=== PATIENT | male | born 1990 | race Caucasian/White ===

== ENCOUNTER 2016-03-24 01:03 | Emergency (ER) | payer SELFPAY ==
[2016-03-24 04:42] VITALS: BP 139/81
[2016-03-24] MEDS ORDERED: HYDROCODONE/ACETAMINOPHEN 5-325 MG 6 TAB/DSPK PO PRN (05:15)
[2016-03-24] MEDS ORDERED: CLINDAMYCIN HCL 150 MG CAPSULE PO ONE (05:17)
--- NOTE | 2016-03-24 05:17 | ER Document Report ---
ED General - General Chief Complaint: Toothache Stated Complaint: MOUTH PAIN Notes: Patient is a 26-year-old male presents with complaints of toothache. She's been seen her twice in February for the same toothache. He is waiting to get into the dentist this month. He says that tonight he developed a bump in his gum next the tooth that is bothering him. Denies any fevers. No difficulty breathing. No facial swelling. No other complaints at this time. He was on clindamycin 2 weeks ago. TRAVEL OUTSIDE OF THE [place] IN LAST 30 DAYS: No - Related Data Allergies/Adverse Reactions: amoxicillin [Amoxicillin] Allergy (Verified 03/13/16 18:28) Penicillins Allergy (Verified 03/13/16 18:28) Past Medical History - Social History Smoking Status: Current Every Day Smoker Cigarette use (# per day): Yes - 1ppd Frequency of alcohol use: Occasional Drug Abuse: None Family History: Reviewed & Not Pertinent Traumatic Medical History: Reports: Hx Fractures - multiple Infectious Medical History: Denies: Hx MRSA Surgical Hx: Negative - Immunizations Hx Diphtheria, Pertussis, Tetanus Vaccination: Yes Review of Systems - Review of Systems Notes: My Normal Review Basic REVIEW OF SYSTEMS: CONSTITUTIONAL : Denies fever, chills, or sweats. Denies recent illness. EENT: Dental pain CARDIOVASCULAR: Denies chest pain. RESPIRATORY: Denies cough, cold, or chest congestion. Denies shortness of breath, difficulty breathing, or wheezing. GASTROINTESTINAL: Denies abdominal pain. Denies nausea, vomiting, or diarrhea. Denies constipation. Last BM: MUSCULOSKELETAL: Denies neck or back pain or joint pain or swelling. SKIN: Denies rash or skin lesions. NEUROLOGICAL: Denies altered mental status or loss of consciousness. Denies headache. Denies weakness or paralysis or loss of use of either side. Denies problems with gait or speech. Denies sensory or motor loss. ALL OTHER SYSTEMS REVIEWED AND NEGATIVE. Physical Exam - Vital signs Vitals: Temp Pulse Resp BP Pulse Ox 98.2 F 99 16 139/81 H 98 03/24/16 04:36 03/24/16 04:36 03/24/16 04:36 03/24/16 04:36 03/24/16 04:36 - Notes Notes: General Appearance: Well nourished, alert, cooperative, no acute distress, moderate obvious discomfort. Vitals: reviewed, See vital signs table. Head: no swelling or tenderness to the head Eyes: PERRL, EOMI, Conjuctiva clear Mouth: Patient has severe dental caries of her multiple teeth. She has several fractured teeth. He does have a small area of bruising of the gum near his left lower premolar. There is almost swelling. I do not suspect she labs at this time. He has no facial swelling associated with it. Throat: No tonsillar inflammation, No airway obstruction, No lymphadenopathy Neck: Supple, no neck tenderness, Skin: warm, dry, appropriate color, no rash Neuro: speech clear, oriented x 3, normal affect, responds appropriately to questions. Course - Vital Signs Vital signs: Temp Pulse Resp BP Pulse Ox 98.2 F 99 16 139/81 H 98 03/24/16 04:36 03/24/16 04:36 03/24/16 04:36 03/24/16 04:36 03/24/16 04:36 - Transfer of Care Notes: 03/24/16 07:29 Patient is well-appearing. I feel he is safe to be discharged home. His no facial swelling and no swelling of the neck. A denies any signs of impending airway compromise. Informed him that based on location of his dental caries that he is a risk of developing facial swelling that goes across his neck in the future. Informed her that this happens must return to ER immediately. I encouraged him to quickly follow-up with a dentist to have his teeth removed or taking care of to help relieve his symptoms. Patient agrees with plan will be discharged home. Patient will be discharged home with prescription of clindamycin and some pain medication. Dictation of this chart was performed using voice recognition software; therefore, there may be some unintended grammatical errors. Discharge - Discharge Clinical Impression: Toothache, Dental infection Condition: Good Disposition: HOME, SELF-CARE Instructions: Oral Narcotic Medication ([facility]), Toothache ([facility]) Additional Instructions: Please return to the ER immediately if you develop facial swelling or swelling below your jaw, difficulty breathing, difficulty swallowing, or any fevers. Prescriptions: Clindamycin HCl 300 mg PO ASDIR #56 capsule Hydrocodone/Acetaminophen [[place] 5-325 mg Tablet] 1 tab PO Q4 PRN #16 tablet PRN Reason: For Breakthrough Pain
== END 2016-03-24 05:20 | disposition home or self-care (01) ==
LOC: ER 01:03
DX: K08.9 Disorder of teeth and supporting structures, unspecified (principal); K04.7 Periapical abscess without sinus; F17.210 Nicotine dependence, cigarettes, uncomplicated; Z88.0 Allergy status to penicillin
CPT/HCPCS: 99282

== ENCOUNTER 2016-03-29 17:58 | Emergency (ER) | payer SELFPAY ==
--- NOTE | 2016-03-29 18:05 | ER Document Report ---
ED Medical Screen (RME) - General Stated Complaint: JAW PAIN Mode of Arrival: Ambulatory Information source: Patient Notes: pt had oral surgery yesterday. Pt c/o pain to left lower jaw pain with bleeding. TRAVEL OUTSIDE OF THE [place] IN LAST 30 DAYS: No - Related Data Allergies/Adverse Reactions: amoxicillin [Amoxicillin] Allergy (Verified 03/29/16 18:01) Penicillins Allergy (Verified 03/29/16 18:01) Past Medical History Traumatic Medical History: Reports: Hx Fractures - multiple Infectious Medical History: Denies: Hx MRSA - Immunizations Hx Diphtheria, Pertussis, Tetanus Vaccination: Yes Physical Exam - HEENT Teeth diagram: 1 - gauze dressing, no visible blood, no potential airway compromise
[2016-03-29] MEDS ORDERED: HYDROCODONE/ACETAMINOPHEN 5-325 MG 6 TAB/DSPK PO PRN (18:33)
--- NOTE | 2016-03-29 18:35 | ER Document Report ---
ED Oral Problem - General Chief Complaint: Mouth Problem Stated Complaint: JAW PAIN Mode of Arrival: Ambulatory TRAVEL OUTSIDE OF THE [place] IN LAST 30 DAYS: No - HPI Patient complains to provider of: Jaw pain Onset: Yesterday Quality of pain: Sharp, Throbbing Severity: Moderate Pain Level: 4 Associated symptoms: Jaw pain Worsened by: Nothing Relieved by: Nothing Similar symptoms previously: Yes Recently seen / treated by doctor/dentist: Yes - Related Data Allergies/Adverse Reactions: amoxicillin [Amoxicillin] Allergy (Verified 03/29/16 18:01) Penicillins Allergy (Verified 03/29/16 18:01) Past Medical History - General Information source: Patient - Social History Smoking Status: Current Every Day Smoker Chew tobacco use (# tins/day): No Frequency of alcohol use: Occasional Drug Abuse: None Family History: Reviewed & Not Pertinent Patient has suicidal ideation: No Patient has homicidal ideation: No Traumatic Medical History: Reports: Hx Fractures - multiple Infectious Medical History: Denies: Hx MRSA - Immunizations Hx Diphtheria, Pertussis, Tetanus Vaccination: Yes Physical Exam - Vital signs Vitals: Temp Pulse Resp BP Pulse Ox 97.7 F 133 H 18 137/99 H 99 03/29/16 18:03 03/29/16 18:03 03/29/16 18:03 03/29/16 18:03 03/29/16 18:03 Interpretation: Normal Notes: Pulse is not 133 but 96 - General General appearance: Appears well, Alert - HEENT Head: Normocephalic, Atraumatic Eyes: Normal Pupils: PERRL Ears: Normal External canal: Normal Tympanic membrane: Normal Sinus: Normal Nasal: Normal Mouth/Lips: Other - Multiple cavities broken off teeth and Teeth diagram: 1 - 3 teeth removed yesterday, multiple teeth down to the gumline with multiple cavities noted and gingivitis. Very minimal bleeding when touched. Pharynx: Normal Neck: Normal - Respiratory Respiratory status: No respiratory distress Chest status: Nontender Breath sounds: Normal Chest palpation: Normal - Cardiovascular Rhythm: Regular Heart sounds: Normal auscultation Murmur: No - Abdominal Inspection: Normal Distension: No distension Bowel sounds: Normal Tenderness: Nontender Organomegaly: No organomegaly - Back Back: Normal, Nontender - Extremities General upper extremity: Normal inspection, Nontender, Normal color, Normal ROM , Normal temperature General lower extremity: Normal inspection, Nontender, Normal color, Normal ROM , Normal temperature, Normal weight bearing. No: Sirena's sign - Neurological Neuro grossly intact: Yes Cognition: Normal Orientation: AAOx4 [place] Coma Scale Eye Opening: Spontaneous Linda Coma Scale Verbal: Oriented [place] Coma Scale Motor: Obeys Commands Linda Coma Scale Total: 15 Speech: Normal Motor strength normal: LUE, RUE, LLE, RLE Sensory: Normal - Psychological Associated symptoms: Normal affect, Normal mood - Skin Skin Temperature: Warm Skin Moisture: Dry Skin Color: Normal Course - Re-evaluation Re-evalutation: 03/29/16 18:45 Patient treated with a dispense pack of hydrocodone and discharged home with a follow-up with his oral surgeon. - Vital Signs Vital signs: Temp Pulse Resp BP Pulse Ox 97.7 F 133 H 18 137/99 H 99 03/29/16 18:03 03/29/16 18:03 03/29/16 18:03 03/29/16 18:03 03/29/16 18:03 Discharge - Discharge Clinical Impression: jaw pain post dental surgery Condition: Stable Disposition: HOME, SELF-CARE Instructions: Family Physicians / Practices Additional Instructions: You were seen today for pain in the left lower jaw post dental surgery yesterday with minimal bleeding. This is normal after removal of 3 teeth. The bleeding is normal for post surgery. Please applied a gauze to the area with pressure. No use of a straw or smoking cigarettes as instructed by your dental surgeon. Oral Narcotic Medication You have been given a prescription for pain control. This medication is a narcotic. It's best taken with food, as nausea can result if taken on an empty stomach. Don't operate machinery or drive within six hours of taking this medication. Do not combine this medicine with alcohol, or with any medication which can cause sedation (such as cold tablets or sleeping pills) unless you get permission from the physician. Narcotics tend to cause constipation. If possible, drink plenty of fluids and eat a diet high in fiber and fruits. Ice Packs Apply ice packs frequently against the painful area. Many different schedules are recommended, such as "20 minutes on, 20 minutes off" or "one hour ice, two hours rest." If you need to work, you may need to go longer between ice treatments. You should plan to have the area ice packed AT LEAST one fourth of the time. The ice should be applied over the wrap, tape, or splint, or over a layer of cloth -- not directly against the skin. Some ice bags have a built-in cloth and can be put directly on the skin. FOLLOW-UP CARE: If you have been referred to a physician for follow-up care, call the physician s office for an appointment as you were instructed or within the next two days. If you experience worsening or a significant change in your symptoms, notify the physician immediately or return to the Emergency Department at any time for re-evaluation. Forms: Elevated Blood Pressure, Return to Work
[2016-03-29 18:53] VITALS: BP 125/79
== END 2016-03-29 18:50 | disposition home or self-care (01) ==
LOC: ER 17:58
DX: R68.84 Jaw pain (principal); Z98.818 Other dental procedure status; F17.200 Nicotine dependence, unspecified, uncomplicated; Z88.0 Allergy status to penicillin
CPT/HCPCS: 99283

== ENCOUNTER 2016-06-02 17:36 | Emergency (ER) | payer SELFPAY ==
--- NOTE | 2016-06-02 17:53 | ER Document Report ---
ED Medical Screen (RME) - General Stated Complaint: HAND PAIN Mode of Arrival: Ambulatory Information source: Patient Notes: Patient presents to the emergency department with complaints of left dorsal hand pain. He reports he dropped drywall on a yesterday. Denies past medical history of injury to the hand. Brisk cap refill, , no obvious deformity, no swelling no ecchymosis. I have greeted and performed a rapid initial assessment of this patient. A comprehensive ED assessment and evaluation of the patient, analysis of test results and completion of the medical decision making process will be conducted by additional ED providers. TRAVEL OUTSIDE OF THE [place] IN LAST 30 DAYS: No - Related Data Allergies/Adverse Reactions: amoxicillin [Amoxicillin] Allergy (Verified 03/29/16 18:01) Penicillins Allergy (Verified 03/29/16 18:01) Past Medical History Traumatic Medical History: Reports: Hx Fractures - multiple Infectious Medical History: Denies: Hx MRSA - Immunizations Hx Diphtheria, Pertussis, Tetanus Vaccination: Yes
[2016-06-02] MEDS ORDERED: IBUPROFEN 600 MG TABLET PO ONE (19:58)
[2016-06-02 20:42] VITALS: BP 128/80
--- NOTE | 2016-06-02 21:33 | ER Document Report ---
ED General - General Chief Complaint: Hand Pain Stated Complaint: HAND PAIN Mode of Arrival: Ambulatory Notes: Patient is a 26-year-old male without past medical history who presents with pain over his left fourth metacarpal after he dropped a piece of drywall onto the hand. States that since that time he's had a small "lump" to the affected area. Also notes a constant, mild, throbbing pain. States moving the hand worsens the pain. He has not tried anything to improve the pain. No history of similar injury in the past. He has not seen his primary care physician regarding today's concerns. Denies any additional injuries. TRAVEL OUTSIDE OF THE [place] IN LAST 30 DAYS: No - Related Data Allergies/Adverse Reactions: amoxicillin [Amoxicillin] Allergy (Verified 06/02/16 17:52) Penicillins Allergy (Verified 06/02/16 17:52) Past Medical History - General Information source: Patient - Social History Smoking Status: Current Every Day Smoker Chew tobacco use (# tins/day): Yes Frequency of alcohol use: None Drug Abuse: None Lives with: Spouse/Significant other Family History: Reviewed & Not Pertinent Patient has suicidal ideation: No Patient has homicidal ideation: No Renal/ Medical History: Denies: Hx Peritoneal Dialysis Traumatic Medical History: Reports: Hx Fractures - multiple Infectious Medical History: Denies: Hx MRSA - Immunizations Hx Diphtheria, Pertussis, Tetanus Vaccination: Yes Review of Systems - Review of Systems Notes: Constitutional: Negative for fever. HENT: Negative for sore throat. Eyes: Negative for visual changes. Cardiovascular: Negative for chest pain. Respiratory: Negative for shortness of breath. Gastrointestinal: Negative for abdominal pain, vomiting or diarrhea. Genitourinary: Negative for dysuria. Musculoskeletal: Positive for left hand pain Skin: Negative for rash. Neurological: Negative for headaches, weakness or numbness. 10 point ROS negative except as marked above and in HPI. Physical Exam - Vital signs Vitals: Temp Pulse Resp BP Pulse Ox 98.8 F 91 14 137/71 H 98 06/02/16 17:51 06/02/16 17:51 06/02/16 17:51 06/02/16 17:51 06/02/16 17:51 Interpretation: Normal Notes: PHYSICAL EXAMINATION: GENERAL: Well-appearing, well-nourished and in no acute distress. HEAD: Atraumatic, normocephalic. EYES: sclera anicteric, conjunctiva are normal. ENT: Moist mucous membranes. NECK: Normal range of motion LUNGS: Normal work of breathing HEART: 2+ radial pulses bilaterally EXTREMITIES: no pitting or edema. No cyanosis. Mild ecchymosis over the left fourth metacarpal with full flexion and extension throughout. NEUROLOGICAL: No focal neurological deficits. Moves all extremities spontaneously and on command. AIN, DELFINA, IO intact bilaterally. RMU sensation intact bilaterally PSYCH: Normal mood, normal affect. SKIN: Warm, Dry, normal turgor, no rashes or lesions noted. Course - Re-evaluation Re-evalutation: 06/02/16 19:57 No evidence of a septic joint, gout flare, dislocation, or fracture on exam and imaging. Clinical history and exams most consistent with soft tissue injury in the setting of direct blunt trauma. Vitals wnl. At this time, I do not see an indication for labs or further imaging. At this time will discharge with return precautions and follow-up recommendations. Verbal discharge instructions given a the bedside and opportunity for questions given. Medication warnings reviewed. Patient is in agreement with this plan and has verbalized understanding of return precautions and the need for primary care follow-up in the next 24-72 hours. - Vital Signs Vital signs: Temp Pulse Resp BP Pulse Ox 97.7 F 85 18 128/80 H 99 06/02/16 20:18 06/02/16 20:18 06/02/16 20:18 06/02/16 20:18 06/02/16 20:18 Discharge - Discharge Clinical Impression: Injury of left hand Qualifiers: Encounter type: initial encounter Qualified Code(s): S69.92XA - Unspecified injury of left wrist, hand and finger(s), initial encounter Condition: Good Disposition: HOME, SELF-CARE Additional Instructions: Your x-ray does not show any acute fracture today. You likely have a soft tissue injury. You should continue to take anti-inflammatories such as ibuprofen 600 mg every 6 hours. Continue to apply ice to the area is much your able. Please follow-up with your primary care physician if you do not have improving your symptoms in the next 1-2 weeks. Please return immediately if you develop weakness, numbness, spreading redness from the area, or any other symptoms that are concerning to you.
== END 2016-06-02 20:18 | disposition home or self-care (01) ==
LOC: ER 17:36
DX: S69.92XA Unspecified injury of left wrist, hand and finger(s), initial encounter (principal); M79.642 Pain in left hand; F17.220 Nicotine dependence, chewing tobacco, uncomplicated; W20.8XXA Other cause of strike by thrown, projected or falling object, initial encounter; Z88.0 Allergy status to penicillin
CPT/HCPCS: 99283

== ENCOUNTER 2016-10-31 00:58 | Emergency (ER) | payer SELFPAY ==
[2016-10-31 01:35] VITALS: BP 124/80
[2016-10-31] MEDS ORDERED: BENZONATATE 100 MG CAPSULE PO ONE (01:37)
[2016-10-31] MEDS ORDERED: CLINDAMYCIN HCL 150 MG CAPSULE PO ONE (01:37)
[2016-10-31] MEDS ORDERED: IBUPROFEN 600 MG TABLET PO ONE (01:37)
--- NOTE | 2016-10-31 02:19 | ER Document Report ---
ED General - General Chief Complaint: Toothache Stated Complaint: TOOTHACHE Time Seen by Provider: 10/31/16 01:35 Notes: Patient is a 26-year-old male who presents with left lower jaw pain which she states is related to a recent dental injury that he sustained today when he cracked a tooth while eating. Patient describes it as a severe, constant, stabbing pain. Talking or moving the jaw or worsens the pain. He has tried ibuprofen with moderate improvement of the pain. Patient has been seen in the emergency department on a multitude of prior occasions for dental related issues. He states he is currently working with a dentist but came to the emergency department tonight as the dental office is closed at this time. Denies any difficulty breathing or swallowing. TRAVEL OUTSIDE OF THE [place] IN LAST 30 DAYS: No - Related Data Allergies/Adverse Reactions: amoxicillin [Amoxicillin] Allergy (Verified 06/02/16 17:52) Penicillins Allergy (Verified 06/02/16 17:52) Past Medical History - General Information source: Patient - Social History Smoking Status: Current Every Day Smoker Frequency of alcohol use: None Drug Abuse: None Lives with: Spouse/Significant other Family History: Reviewed & Not Pertinent Renal/ Medical History: Denies: Hx Peritoneal Dialysis Traumatic Medical History: Reports: Hx Fractures - multiple Infectious Medical History: Denies: Hx MRSA - Immunizations Hx Diphtheria, Pertussis, Tetanus Vaccination: Yes Review of Systems - Review of Systems Notes: Constitutional: Negative for fever. HENT: Positive for dental pain Eyes: Negative for visual changes. Cardiovascular: Negative for chest pain. Respiratory: Negative for shortness of breath. Gastrointestinal: Negative for abdominal pain, vomiting or diarrhea. Genitourinary: Negative for dysuria. Musculoskeletal: Negative for back pain. Skin: Negative for rash. Neurological: Negative for headaches, weakness or numbness. 10 point ROS negative except as marked above and in HPI. Physical Exam - Vital signs Vitals: Temp Pulse Resp BP Pulse Ox 97.7 F 86 15 124/80 97 10/31/16 01:30 10/31/16 01:30 10/31/16 01:30 10/31/16 01:30 10/31/16 01:30 Interpretation: Normal Notes: PHYSICAL EXAMINATION: GENERAL: Well-appearing, well-nourished and in no acute distress. HEAD: Atraumatic, normocephalic. EYES: sclera anicteric, conjunctiva are normal. ENT: Moist mucous membranes. Poor dentition throughout. No evidence of an apical abscess, facial swelling or oropharyngeal edema NECK: Normal range of motion LUNGS: Normal work of breathing HEART: 2+ radial pulses bilaterally EXTREMITIES: no pitting or edema. No cyanosis. NEUROLOGICAL: No focal neurological deficits. Moves all extremities spontaneously and on command. PSYCH: Normal mood, normal affect. SKIN: Warm, Dry, normal turgor, no rashes or lesions noted. Course - Re-evaluation Re-evalutation: 10/31/16 02:17 Presentation is most consistent with likely an infected tooth. Airway is patent. Vitals within normal limits. Patient is able swallow without any difficulty. There is no significant facial swelling. Patient will be started on antibiotics and a limited number of pain medications. I've instructed to follow-up with dentistry as earliest ability for definitive management. Return precautions and follow-up recommendations have been discussed at length. - Vital Signs Vital signs: Temp Pulse Resp BP Pulse Ox 97.7 F 86 15 124/80 97 10/31/16 01:30 10/31/16 01:30 10/31/16 01:30 10/31/16 01:30 10/31/16 01:30 Discharge - Discharge Clinical Impression: Pain, dental Condition: Good Disposition: HOME, SELF-CARE Additional Instructions: You have been seen for dental pain. It is very important that you follow-up with a dentist for definitive care. Please return if you develop fever greater than 101, swelling in your face, vomiting, difficulty breathing or swallowing, or any other symptoms that are concerning to you. For pain you should take ibuprofen 600 mg every 6 hours as needed. Prescriptions: Clindamycin HCl 300 mg PO TID #30 capsule
== END 2016-10-31 02:26 | disposition home or self-care (01) ==
LOC: ER 00:58
DX: K08.89 Other specified disorders of teeth and supporting structures (principal); R68.84 Jaw pain; F17.200 Nicotine dependence, unspecified, uncomplicated
CPT/HCPCS: 99282

== ENCOUNTER 2016-12-29 16:51 | Emergency (ER) | payer SELFPAY ==
[2016-12-29 17:42] VITALS: BP 125/82
[2016-12-29] MEDS ORDERED: OXYCODONE-ACETAMINOPHEN 5-325 MG TABLET PO ONE (19:07)
[2016-12-29] MEDS ORDERED: CEPHALEXIN 500 MG CAPSULE PO ONE (19:07)
--- NOTE | 2016-12-29 19:07 | ER Document Report ---
HPI - HPI Patient complains to provider of: Left finger injury Pain Level: 4 Context: Patient is a 26-year-old male presents emergency department complaining of left finger hurts and feels like it is pulsing but otherwise denies any sensory dysfunction. Full range of motion. Otherwise healthy male index finger injury. Patient states that he hit with a hammer today. There is a superficial laceration. Tetanus is up-to-date. States it is - DERM Skin Color: Normal Past Medical History - Social History Smoking Status: Current Every Day Smoker Family History: Reviewed & Not Pertinent Patient has suicidal ideation: No Patient has homicidal ideation: No Renal/ Medical History: Denies: Hx Peritoneal Dialysis Traumatic Medical History: Reports: Hx Fractures - multiple Infectious Medical History: Denies: Hx MRSA - Immunizations Hx Diphtheria, Pertussis, Tetanus Vaccination: Yes Vertical Provider Document - CONSTITUTIONAL Agree With Documented VS: Yes Exam Limitations: No Limitations General Appearance: WD/WN, No Apparent Distress - INFECTION CONTROL TRAVEL OUTSIDE OF THE [place] IN LAST 30 DAYS: No - RESPIRATORY O2 Sat by Pulse Oximetry: 98 - CARDIOVASCULAR Pulses: Normal: Radial - Capillary refill less than 2 seconds in all upper extremity digits - MUSCULOSKELETAL/EXTREMETIES Musculoskeletal/Extremeties: MAEW, FROM, Tender - Distal phalanx of the left index finger, No Edema. negative: Eccymosis Notes: No evidence of subungual hematoma, nail injury, tendon deficit - NEURO Level of Consciousness: Awake, Alert, Appropriate Motor/Sensory: No Motor Deficit, No Sensory Deficit - DERM Integumentary: Warm, Dry, No Rash, Laceration - 2 cm superficial laceration without involvement in the dermis or wound edges. Course - Re-evaluation Re-evalutation: 12/29/16 19:07 Patient is a 26-year-old male is hemodynamically stable, no acute distress afebrile. No evidence of a septic joint, gout flare, dislocation, or fracture on exam and imaging. Vitals wnl. At this time, I do not see an indication for labs or further imaging. Laceration was irrigated with Betadine, dressed with Steri-Strips and dry sterile dressing and splint. Will discharge with conservative measures, return precautions, and follow-up recommendations. - Vital Signs Vital signs: Temp Pulse Resp BP Pulse Ox 101 H 16 125/82 98 12/29/16 08:39 12/29/16 08:39 12/29/16 08:39 12/29/16 08:39 - Diagnostic Test Radiology reviewed: Image reviewed, Reports reviewed Discharge - Discharge Clinical Impression: Finger injury Qualifiers: Encounter type: initial encounter Laterality: left Qualified Code(s): S69.92XA - Unspecified injury of left wrist, hand and finger(s), initial encounter Condition: Good Disposition: HOME, SELF-CARE Instructions: Contusion ([facility]), Soap Cleansing ([facility]), Sprained Finger ([facility]) Additional Instructions: Please beware of signs of worsening swelling, redness or drainage Keep the site clean, dry and covered with the splint Prescriptions: Cephalexin Monohydrate [Keflex 500 mg Capsule] 500 mg PO Q6H 5 Days capsule
--- NOTE | 2016-12-29 19:27 | RADIOLOGY REPORT (SQ) ---
EXAM DESCRIPTION: FINGER LEFT COMPLETED DATE/TIME: 12/29/2016 7:20 pm REASON FOR STUDY: index hit with hammer COMPARISON: None. NUMBER OF VIEWS: Three views. TECHNIQUE: AP, lateral, and oblique images acquired of the left second finger. LIMITATIONS: None. FINDINGS: MINERALIZATION: Normal. BONES: No acute fracture or dislocation. No worrisome bone lesions. SOFT TISSUES: No soft tissue swelling. No foreign body. OTHER: No other significant finding. IMPRESSION: NO RADIOGRAPHIC EVIDENCE OF ACUTE INJURY. COMMENT: SITE OF TRAUMA/COMPLAINT MARKED/STAMP COMPLETED: NO. TECHNICAL DOCUMENTATION: JOB ID: [id number]- All Rights Reserved
[2016-12-29] MEDS ORDERED: HYDROCODONE/ACETAMINOPHEN 5-325 MG 6 TAB/DSPK PO PRN (19:49)
== END 2016-12-29 20:08 | disposition home or self-care (01) ==
LOC: ER 16:51
DX: S69.92XA Unspecified injury of left wrist, hand and finger(s), initial encounter (principal); W22.8XXA Striking against or struck by other objects, initial encounter; F17.200 Nicotine dependence, unspecified, uncomplicated
CPT/HCPCS: 99283

== ENCOUNTER 2017-05-06 02:43 | Emergency (ER) | payer MEDICAID ==
[2017-05-06 02:59] VITALS: BP 119/81
[2017-05-06] MEDS ORDERED: OXYCODONE-ACETAMINOPHEN 5-325 MG TABLET PO ONE (03:37)
[2017-05-06] MEDS ORDERED: HYDROCODONE/ACETAMINOPHEN 5-325 MG (6 TAB/ER DISP) PO PRN (03:37)
[2017-05-06] MEDS ORDERED: CLINDAMYCIN HCL 150 MG CAPSULE PO ONE (03:37)
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
== END 2017-05-06 03:55 | disposition home or self-care (01) ==
LOC: ER 02:43
DX: R22.0 Localized swelling, mass and lump, head (principal); K08.9 Disorder of teeth and supporting structures, unspecified
CPT/HCPCS: 99283; J3490

== ENCOUNTER 2017-05-17 14:28 | Emergency (ER) | payer MEDICAID ==
[2017-05-17] MEDS ORDERED: LIDOCAINE 1%/EPINEPHRINE INJ 20 ML VIAL INJ ONE (15:14)
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
[2017-05-17] MEDS ORDERED: BACITRACIN ZINC OINTMENT 15 GM TP ONE (16:03)
[2017-05-17 16:27] VITALS: BP 112/69
== END 2017-05-17 16:25 | disposition home or self-care (01) ==
LOC: ER 14:28
PROC: 0HQ1XZZ Repair Face Skin, External Approach (ICD-10-PCS; principal; 2017-05-17)
DX: S01.112A Laceration without foreign body of left eyelid and periocular area, initial encounter (principal); S00.83XA Contusion of other part of head, initial encounter; F17.200 Nicotine dependence, unspecified, uncomplicated; W51.XXXA Accidental striking against or bumped into by another person, initial encounter
CPT/HCPCS: 99282; 12013; J3490

== ENCOUNTER 2017-12-07 23:33 | Emergency (ER) | payer MEDICAID ==
[2017-12-07 23:47] VITALS: BP 137/71
[2017-12-08] MEDS ORDERED: DEXAMETHASONE SOD PHOS INJ 10 MG/1 ML VIAL IM ONE (01:24)
--- NOTE | 2017-12-08 01:26 | ER Document Report ---
HPI - HPI Patient complains to provider of: right sided neck pain Pain Level: 4 Context: Patient is a 27-year-old male that comes to the Emergency Department for chief complaint of pain and a swollen area to the right side of his neck. He reports that this developed over the past day. He denies ear pain, fever, difficulty swallowing, neck stiffness, or injury. He denies any daily medications. Past Medical History - General Information source: Patient - Social History Smoking Status: Never Smoker Frequency of alcohol use: None Drug Abuse: None Lives with: Family Family History: Reviewed & Not Pertinent Renal/ Medical History: Denies: Hx Peritoneal Dialysis Traumatic Medical History: Reports: Hx Fractures - multiple Infectious Medical History: Denies: Hx MRSA Past Surgical History: Reports: Hx Orthopedic Surgery - R thumb - Immunizations Immunizations up to date: Yes Hx Diphtheria, Pertussis, Tetanus Vaccination: Yes Vertical Provider Document - CONSTITUTIONAL General Appearance: WD/WN, No Apparent Distress - INFECTION CONTROL TRAVEL OUTSIDE OF THE [place] IN LAST 30 DAYS: No - HEENT HEENT: Atraumatic, Normocephalic - NECK Neck: negative: Normal Inspection - Right sided posterior cervical adenopathy, no erythema, abnormal heat, minimal tenderness. Otherwise unremarkable neck exam. - RESPIRATORY Respiratory: Breath Sounds Normal, No Respiratory Distress - CARDIOVASCULAR Cardiovascular: Regular Rate, Regular Rhythm - GI/ABDOMEN Gastrointestinal: Abdomen Soft, Abdomen Non-Tender - BACK Back: Normal Inspection - MUSCULOSKELETAL/EXTREMETIES Musculoskeletal/Extremeties: MAEW, FROM, Non-Tender - NEURO Level of Consciousness: Awake, Alert, Appropriate - DERM Integumentary: Warm, Dry, No Rash Course - Re-evaluation Re-evalutation: Bedside ultrasound performed, shows no fluid collection, exam is suggestive of swollen lymph node in the posterior cervical chain on the right side. No signs of infection of the scalp, ear, or otherwise. Area is tender but is not erythematous, does not have abnormal heat, does not appear to be infected. Appears to be reactive lymphadenopathy. Discussed with patient. Will treat with dexamethasone, discussed follow-up and return precautions for signs of infection or failure to improve. Patient states understanding and agreement. - Vital Signs Vital signs: Temp Pulse Resp BP Pulse Ox 98.2 F 94 16 137/71 H 98 12/07/17 23:46 12/07/17 23:46 12/07/17 23:46 12/07/17 23:46 12/07/17 23:46 Discharge - Discharge Clinical Impression: Posterior cervical lymphadenopathy Condition: Stable Disposition: HOME, SELF-CARE Additional Instructions: Your examination is consistent with swelling of the posterior cervical lymph node chain, this is usually an immune system response to an ongoing or recent illness, you have been medicated to help with the symptoms of lymph node swelling. Follow-up with primary care. Return for any concerning symptoms including severe pain, developing redness, increased swelling, fever, or any other concerning symptoms. Forms: Return to Work Referrals: MARY BRENNAN PA-C [Primary Care Provider] - Follow up as needed
== END 2017-12-08 02:13 | disposition home or self-care (01) ==
LOC: ER 23:33
DX: R59.0 Localized enlarged lymph nodes (principal)
CPT/HCPCS: 99283; 96372; J1100

== ENCOUNTER 2018-05-01 22:03 | Emergency (ER) | payer MEDICAID ==
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
[2018-05-02 01:32] VITALS: BP 109/72
== END 2018-05-02 01:32 | disposition home or self-care (01) ==
LOC: ER 22:03
DX: S60.221A Contusion of right hand, initial encounter (principal); W22.01XA Walked into wall, initial encounter; F17.200 Nicotine dependence, unspecified, uncomplicated
CPT/HCPCS: 99283

== ENCOUNTER 2019-03-30 03:48 | Emergency (ER) | payer MEDICAID ==
[2019-03-30 04:01] VITALS: BP 138/95
--- NOTE | 2019-03-30 04:43 | RADIOLOGY REPORT (SQ) ---
EXAM DESCRIPTION: XR HAND 3 OR MORE VIEWS COMPLETED DATE/TME: 03/30/2019 04:02 CLINICAL HISTORY: 29 years, Male, bone tenderness, swelling COMPARISON: 05/02/2018 right hand NUMBER OF VIEWS: 3 TECHNIQUE: 3 views right hand LIMITATIONS: None. FINDINGS: There is an old healed fracture of the fifth metacarpal. Chronic changes of the thumb. Negative for acute fracture or dislocation. IMPRESSION: No acute osseous abnormality copyright 2010 [employer]- All Rights Reserved
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
[2019-03-30] MEDS ORDERED: SULFAMETHOXAZOLE/TRIMETHOPRIM 800-160 MG TABLET PO ONE (05:35)
[2019-03-30] MEDS ORDERED: OXYCODONE-ACETAMINOPHEN 5-325 MG TABLET PO ONE (05:35)
== END 2019-03-30 05:49 | disposition home or self-care (01) ==
LOC: ER 03:48
DX: S60.221A Contusion of right hand, initial encounter (principal); M79.641 Pain in right hand; M79.644 Pain in right finger(s); W22.8XXA Striking against or struck by other objects, initial encounter; Z98.890 Other specified postprocedural states; F17.200 Nicotine dependence, unspecified, uncomplicated
CPT/HCPCS: 99283